=== PATIENT | male | born 1955 | race Caucasian/White ===

== ENCOUNTER 2020-04-06 09:45 | Inpatient (IN) | payer OTHER ==
[2020-03-28 12:50] LABS: BASOPHILS # (AUTO) 0.1 X10'3 (0-0.2); EOSINOPHILS # (AUTO) 0.3 X10'3 (0-0.9); EOSINOPHILS % (AUTO) 3.3 % (0-6); LYMPHOCYTES % (AUTO) 24.2 % (21-51); MEAN CORPUSCULAR HEMOGLOBIN 29.1 PG (27.0-31.0); MEAN CORPUSCULAR HGB CONC 33.8 g/dL (33.0-36.5); MEAN CORPUSCULAR VOLUME 86.2 FL (78-98); MEAN PLATELET VOLUME 9.4 FL (7.4-10.4); MONOCYTES # (AUTO) 0.6 X10'3 (0-0.9); MONOCYTES % (AUTO) 7.6 % (2-12); NEUTROPHILS # (AUTO) 5.2 X10'3 (1.8-7.7); NEUTROPHILS % (AUTO) 63.9 % (42-75); PRE OP HEMATOCRIT 44.2 % (42.0-52.0); PRE OP HEMOGLOBIN 14.9 g/dL (14.0-17.9); PRE OP PLATELET COUNT 255 X10'3 (140-440); RED BLOOD COUNT 5.13 X10'6 (4.70-6.10); RED CELL DISTRIBUTION WIDTH 14.7 % (11.5-14.5)
[2020-03-28 13:05] LABS: ALBUMIN 4.1 G/DL (3.4-5.0); ALBUMIN/GLOBULIN RATIO 1.2 (1.1-1.5); ALKALINE PHOSPHATASE 83 IU/L (46-116); BLOOD UREA NITROGEN 19 MG/DL (7-18); BUN/CREATININE RATIO 19.4 (5.4-32.0); CALCIUM 9.5 MG/DL (8.5-10.1); CHLORIDE 103 MMOL/L (99-107); CREATININE 0.98 MG/DL (0.60-1.10); PRE OP ALT 32 U/L (30-65); PRE OP ANION GAP 10 (8-16); PRE OP AST 18 U/L (10-37); PRE OP BILIRUB, TOTAL 0.6 MG/DL (0.0-1.0); PRE OP GLUCOSE 127 MG/DL (70-104); PRE OP POTASSIUM 3.7 MMOL/L (3.4-5.1); PRE OP SODIUM 139 MMOL/L (135-145); TOTAL CARBON DIOXIDE 25.7 MMOL/L (24-32); TOTAL PROTEIN 7.4 G/DL (6.4-8.2); eGFR 76 ML/MIN
[~2020-04-06] VITALS: Ht 175.3 cm; Wt 97.0 kg
[2020-04-06] VITALS (18 sets, daily range): BP systolic 87–152; BP diastolic 58–82
[~2020-04-06 09:45] MED LIST: ASPI-1265 PO; FINA5TAB11 PO; FLO0.4C PO; LANS15CA18 PO; ROSU10TA2 PO; VALS1TAB77 PO; cefazolin/dext.iso 2gm/50ml 50 ML IV ONE; famotidine 20mg tablet PO ONE; ringers solution, lacted 1,000 ML IV SCH; vancomycin 1,500 MG in NS 500ml IV soln IV ONE
[2020-04-06] MEDS ORDERED: ceFAZolin 1000mg inj ONE (11:56)
[2020-04-06] MEDS ORDERED: dexamethasone sod phosphate 10mg/ml inj ONE (12:12)
[2020-04-06] MEDS ORDERED: sevoflurane 250ml liquid IH ONE (12:12)
[2020-04-06] MEDS ORDERED: ondansetron/PF 4mg/2ml inj ONE (12:12)
[2020-04-06] MEDS ORDERED: fentaNYL/PF 50MCG/1 ML 2ML syringe ONE (12:18)
[2020-04-06] MEDS ORDERED: midazolam 2 mg/2 ml injection ONE (12:22)
[2020-04-06] MEDS ORDERED: ROPIVAcaine 0.2%/PF PUMP/bolus 550 ML INTERSCALE SCH (12:58)
[2020-04-06] MEDS ORDERED: ringers solution, lacted 1,000 ML IV SCH (12:58)
[2020-04-06] MEDS ORDERED: ondansetron/PF 4mg/2ml inj IV PRN ×2 (13:00→14:55)
[2020-04-06] MEDS ORDERED: labetalol 5mg/ml 20ml inj. IV PRN (13:00)
[2020-04-06] MEDS ORDERED: labetalol 20mg/4ml (5mg/ml) syringe IV PRN (13:00)
[2020-04-06] MEDS ORDERED: ROPIVAcaine 0.2% (10 MG/5 ML) BOLUS INJECTION INTERSCALE PRN (13:00)
[2020-04-06] MEDS ORDERED: proCHLORperazine 10 MG/2 ml inj IV PRN (13:00)
[2020-04-06] MEDS ORDERED: meperidine/PF 25mg/ml syringe IV PRN ×3 (13:00)
[2020-04-06] MEDS ORDERED: morphine 4 MG/ML inj SYRINge IV PRN (13:00)
[2020-04-06] MEDS ORDERED: morphine 2 MG/ML inj. syringe IV PRN (13:00)
[2020-04-06] MEDS ORDERED: acetaminophen 1,000mg/100ml IV 100 ML IV PRN (13:00)
[2020-04-06] MEDS ORDERED: TRANEXAMIC ACID 1 GM IN NACL,ISO-OS 100 ML IV ONE (13:15)
[2020-04-06] MEDS ORDERED: rocuronium 10mg/ml inj IV ONE (13:33)
[2020-04-06] MEDS ORDERED: LIDOcaine 2% (20mg/ml) 5ml vial ONE (13:33)
[2020-04-06] MEDS ORDERED: propofol inj 20 ML IV ONE (13:33)
[2020-04-06] MEDS ORDERED: ROPIVAcaine 0.5% (5mg/ml) 30ml vial ONE (13:34)
[2020-04-06] MEDS ORDERED: morphine 10mg/ml inj. ONE (13:36)
[2020-04-06] MEDS ORDERED: neostigmine methylsulfate 1 MG/ML 10ml vial ONE (14:52)
[2020-04-06] MEDS ORDERED: glycopyrrolate 0.2mg/ml inj ONE (14:52)
[2020-04-06] MEDS: potassium cl 20mEq in 1/2 NS 1,000 ML IV SCH (14:54)
[2020-04-06] MEDS ORDERED: HYDROmorphone 1 mg/ml syringe IV PRN (14:55)
[2020-04-06] MEDS ORDERED: bisacodyl 10mg suppository rectal RC PRN (14:55)
[2020-04-06] MEDS ORDERED: oxyCODONE IR 5mg (immed. release) tablet PO PRN ×2 (14:55)
[2020-04-06] MEDS ORDERED: acetaminophen 325mg tablet PO PRN (14:55)
[2020-04-06] MEDS ORDERED: diphenhydrAMINE 25mg capsule PO PRN ×2 (14:55)
[2020-04-06] MEDS ORDERED: HYDROmorphone inj. 0.5 MG/0.5 ML DISP.SYRIN IV PRN (14:55)
[2020-04-06] MEDS ORDERED: magnesium hydroxide 30ml (MOM) UD suspension PO PRN (14:55)
--- NOTE | 2020-04-06 15:25 | NUR ---
Received from OR via ORTHO BED WITH DEMAGALI , accompanied by Anesthesiologist DANIELA and report given by Anesthesiolgist. PATIENT WITH 18G PIV IN LEFT WRIST AREA. RUNNING LR AT 100. DENIES PAIN. RIGHT SHOULDER IN SHOULDER WRAP AND POWDER PACK. ON Q DRESSING PRESENT AND CONNECTED TO ONQ PUMP. + RADIAL PULSE PRESENT TO RIGHT UE. POSITIONED UPON A PILLOW TO PROTECT ULNAR NERVE. SCDS DONNED. VSS. Addendum: 04/06/20 at 1554 by Avery Blakely RN, RN Amended: Links added.
[2020-04-06] MEDS ORDERED: pantoprazole 40mg Tablet.DR PO PRN (16:15)
--- NOTE | 2020-04-06 16:19 | NUR ---
163 BLOOD GLUCOSE IN RECOVERY ROOM Addendum: 04/06/20 at 1619 by Avery Blakely RN, RN Amended: Links added.
--- NOTE | 2020-04-06 16:35 | NUR ---
ALL CRITERIA FOR DC TO THE FLOOR HAS BEEN ACHIEVED. 2 RAILS UP. BED LOW, CALL LIGHT PRESENT. GAVE REPORT TO ADALBERTO ROBISON . PAIN AT A TOLERABLE LEVEL AT THIS TIME. DRESSINGS CDI. CARE TURNED OVER TO RN. VSS. RN PRESENT TO ACCEPT PATIENT. Addendum: 04/06/20 at 1650 by Avery Blakely RN RN Amended: Links added.
--- NOTE | 2020-04-06 18:36 | NUR ---
Problems reprioritized. Patient report given, questions answered & plan of care reviewed with Victorina GLOVER.
[2020-04-06] MEDS: ceFAZolin 1GM/D5W- ADD-VANTAGE 50 ML IV SCH (19:47)
[2020-04-06] MEDS ORDERED: vancomycin/NS 1 GM ADD-VANTAGE 250 ML IV SCH (20:00)
[2020-04-06] MEDS: gabapentin 300mg capsule PO SCH (20:31)
[2020-04-06] MEDS: acetaminophen 325mg tablet PO SCH (20:32)
[2020-04-06] MEDS ORDERED: sennosides 8.6mg tablet PO SCH (21:00)
[2020-04-07 02:00] VITALS: BP 129/73
[2020-04-07] MEDS: ceFAZolin 1GM/D5W- ADD-VANTAGE 50 ML IV SCH (04:27)
[2020-04-07] MEDS: potassium cl 20mEq in 1/2 NS 1,000 ML IV SCH ×2 (04:27→06:54)
--- NOTE | 2020-04-07 05:48 | NUR ---
Problems reprioritized. Patient report given, questions answered & plan of care reviewed with Maritza GLOVER.
[2020-04-07 06:00] VITALS: BP 131/70
--- NOTE | 2020-04-07 06:05 | NUR ---
Patient in room ORTHO 4006. I have received report from Victorina and had the opportunity to ask questions and assume patient care.
[2020-04-07 06:28] LABS: BASOPHILS % (AUTO) 0.3 % (0-1); EOSINOPHILS % (AUTO) 0 % (0-6); HEMATOCRIT 39.5 % (42.0-52.0); HEMOGLOBIN 13.2 g/dl (14.0-17.9); LYMPHOCYTES # (AUTO) 1.5 X10'3 (1.1-4.8); LYMPHOCYTES % (AUTO) 10.3 % (21-51); MEAN CORPUSCULAR HEMOGLOBIN 29.2 PG (27.0-31.0); MEAN CORPUSCULAR HGB CONC 33.4 g/dL (33.0-36.5); MEAN CORPUSCULAR VOLUME 87.3 FL (78-98); MONOCYTES # (AUTO) 1.4 X10'3 (0-0.9); MONOCYTES % (AUTO) 9.5 % (2-12); NEUTROPHILS # (AUTO) 11.7 X10'3 (1.8-7.7); NEUTROPHILS % (AUTO) 79.9 % (42-75); PLATELET COUNT 258 X10'3 (140-440); RED BLOOD COUNT 4.53 X10'6 (4.70-6.10); WHITE BLOOD COUNT 14.6 X10'3 (4.5-11.0)
[2020-04-07 07:04] LABS: ANION GAP 8 (8-16); CHLORIDE 105 MMOL/L (99-107); POTASSIUM 4.5 MMOL/L (3.5-5.1); SODIUM 138 MMOL/L (135-145); TOTAL CARBON DIOXIDE 25.2 MMOL/L (24-32)
[2020-04-07] MEDS ORDERED: ONQPUMP ADDCANAL (07:15)
[2020-04-07] MEDS ORDERED: ASPI-1 PO (07:15)
[2020-04-07] MEDS ORDERED: tamsulosin 0.4mg capsule PO SCH (08:00)
[2020-04-07] MEDS ORDERED: finasteride 5mg tablet PO SCH (08:00)
[2020-04-07] MEDS ORDERED: atorvastatin 20mg tablet PO SCH (08:00)
[2020-04-07] MEDS ORDERED: losartan 50mg tablet PO SCH (08:00)
[2020-04-07] MEDS ORDERED: aspirin 81mg tablet.DR PO SCH (08:00)
[2020-04-07] MEDS ORDERED: HYDROchlorothiazide 25mg tablet PO SCH (08:00)
[2020-04-07] MEDS ORDERED: non-formulary drug (Valsartan/Hydrochlorothiazide (Valsartan-Hctz 160-25 Mg Tab) 1 TAB) PO SCH (08:00)
[2020-04-07] MEDS ORDERED: aspirin 325mg tablet PO SCH (08:30)
[2020-04-07] MEDS: acetaminophen 325mg tablet PO SCH (08:32)
[2020-04-07] MEDS: gabapentin 300mg capsule PO SCH (08:33)
[2020-04-07 10:00] VITALS: BP 125/69
--- NOTE | 2020-04-07 11:11 | NUR ---
Reviewed discharge instructions with pt. Pt verbalized understanding. Pt is alert, oriented and able to dress himself. Pt does not c/o pain at this time. All of pt's belongings were returned to pt. Pt was wheeled downstairs to be driven home by his spouse.
[2020-04-07] MEDS ORDERED: celeCOXIB 100mg capsule PO SCH (20:00)
[2020-04-08] MEDS ORDERED: acetaminophen 325mg tablet PO PRN (14:55)
== END 2020-04-07 11:08 | disposition home or self-care (01) | DRG 483 ==
LOC: PAS IN 09:45 → INTOOBSV 09:45 → OBSVTOIN 14:58 → EDSTATUS 15:15 → ORTHO 4S 16:40
PROVIDERS: ADMIT Orthopaedic Surgery; ATTEND Orthopaedic Surgery
PROC: 3E0T3BZ Introduction of Anesthetic Agent into Peripheral Nerves and Plexi, Percutaneous Approach (ICD-10-PCS; 2020-04-06)
PROC: 0RRJ0JZ Replacement of Right Shoulder Joint with Synthetic Substitute, Open Approach (ICD-10-PCS; principal; 2020-04-06 12:12)
DX: M19.011 Primary osteoarthritis, right shoulder (principal); D62 Acute posthemorrhagic anemia; E78.5 Hyperlipidemia, unspecified; I25.10 Atherosclerotic heart disease of native coronary artery without angina pectoris; I10 Essential (primary) hypertension; K21.9 Gastro-esophageal reflux disease without esophagitis; N40.0 Benign prostatic hyperplasia without lower urinary tract symptoms; M75.101 Unspecified rotator cuff tear or rupture of right shoulder, not specified as traumatic; Z95.1 Presence of aortocoronary bypass graft; Z79.899 Other long term (current) drug therapy; Z79.82 Long term (current) use of aspirin
CPT/HCPCS: Z7506; Z7508; 36415; 71046; 73020; 80051; 80053; 82948; 85025; 87081; 97110; 97116; 97161; 97530; A4215; A4565; A4618; A7000; C1713; C1776; C9250; G0378; J0690; J1100; J2001; J2250; J2270; J2405; J2704; J2710; J2795; J3010; J3370; J3480; J3490; J7040; J7120